=== PATIENT | male | born 1955 | race African-American/Black ===

== ENCOUNTER 2018-09-30 14:30 | Inpatient (IN) | payer MEDICAID, OTHER ==
[~2018-09-30] VITALS: Ht 172.7 cm; Wt 56.7 kg
[~2018-09-30 14:30] MED LIST: ALBU6.7H INH; FLUT1DIS INH; Folic Acid PO; LEVO500T2 PO; MOME13HF2 INH; MONT10TA21 PO; Metoprolol Tartrate PO; RISP05 PO; TAMS-11 PO; TDUR2 PO
[2018-09-30] MEDS ORDERED: METHYLPREDNISOLONE SOD SUCC 125 MG/2 ML VIAL IV STA (15:53)
[2018-09-30] MEDS ORDERED: MAGNESIUM 2 G PREMIX 50 ML IV ONE (16:00)
[2018-09-30] MEDS ORDERED: IPRATROPIUM/ALBUTEROL 0.5-3(2.5)MG/3ML NEB HHN ONE (16:00)
[2018-09-30] MEDS ORDERED: LEVOFLOXACIN 750MG PREMIX 150 ML IV ONE (16:00)
[2018-09-30 16:14] LABS: CHLORIDE 100 mEq/L (98-107)
[2018-09-30 16:15] LABS: BASOPHILS % 0.1 % (0.0-2.0); HEMATOCRIT. 50.6 % (42.0-52.0); HEMOGLOBIN. 16.4 g/dL (14.0-18.0); INR 1.2; LYMPHOCYTES % 18.2 % (20.0-50.0); MEAN CORPUSCULAR HEMOGLOBIN 30.4 pg (28.0-32.0); MEAN CORPUSCULAR VOLUME 93.6 fL (80.0-94.0); MEAN PLATELET VOLUME 11.3 fl (7.4-10.4); MONOCYTES % 6.5 % (2.0-8.0); NEUTROPHILS % 75.2 % (40.0-76.0); PARTIAL THROMBOPLASTIN TIME 31.8 sec (23.4-31.0); PLATELET 163 x1000/uL (130-400); PROTHROMBIN TIME 11.9 sec (9.1-11.1); RED BLOOD CELL COUNT 5.41 mill/uL (4.7-6.1); RED CELL DISTRIBUTION WIDTH 14.1 % (11.6-14.6)
[2018-09-30 16:19] LABS: ETHANOL BLOOD < 10 mg/dL
[2018-09-30 16:21] LABS: BG BASE EXCESS 1.6 mmol/L (-2.0-2.0); BG CARBOXYHEMOGLOBIN 1.3 % (0.5-1.5); BG DEOXYHEMOGLOBIN 1.2 % (0.0-5.0); BG HCO3 ACT 20.3 mmol/L (22.0-26.0); BG METHEMOGLOBIN 0.5 % (0.0-1.5); BG OXYGEN SATURATION 98.8 % (92.0-98.5); BG PCO2 20.5 mmHg (35.0-45.0); BG PH 7.613 (7.350-7.450); BG PO2 102.8 mmHg (75.0-100.0); BG SAMPLE SITE RIGHT RADIAL; BG TOTAL HEMOGLOBIN 16.3 g/dL (12.0-18.0); BG VENT MODE NASAL CANNULA
[2018-09-30] MEDS ORDERED: LORAZEPAM 2MG/ML CPJ IV ONE (16:30)
[2018-09-30] MEDS ORDERED: POTASSIUM CHLORIDE 20MEQ TABLET SR PO ONE (17:00)
[2018-09-30 19:16] LABS: CLARITY URINE CLOUDY (CLEAR); COLOR URINE YELLOW (YELLOW); KETONES URINE 2+ (NEGATIVE); LEUKOCYTE ESTERASE URINE 3+ (NEGATIVE); NITRITE URINE POSITIVE (NEGATIVE); OCCULT BLOOD URINE NEGATIVE (NEGATIVE); PH URINE 8.5 (4.5-8.0); PROTEIN URINE 2+ (NEGATIVE); SPECIFIC GRAVITY URINE 1.025 (1.005-1.030); UROBILINOGEN URINE 0.2 E.U./dL (0.2-1.0)
[2018-09-30 19:26] LABS: *BARBITURATES SCREEN URINE NEGATIVE (NEGATIVE)
[2018-09-30 19:27] LABS: *AMPHETAMINES SCREEN URINE NEGATIVE (NEGATIVE); *BENZODIAZEPINES SCREEN URINE NEGATIVE (NEGATIVE); *COCAINE SCREEN URINE NEGATIVE (NEGATIVE); METHADONE URINE SCREEN NEGATIVE (NEGATIVE); OPIATES URINE SCREEN NEGATIVE (NEGATIVE); PHENCYCLIDINE URINE SCREEN NEGATIVE (NEGATIVE)
[2018-09-30 19:28] LABS: CANNABINOID URINE SCREEN PRESUMTIVE POSITIVE (NEGATIVE)
[2018-09-30] MEDS ORDERED: MORPHINE SULFATE 4 MG/ML CPJ (NOT FOR IM USE) IV ONE (21:30)
[2018-09-30] MEDS ORDERED: ONDANSETRON HCL 4MG/2ML INJ IV ONE (21:30)
[2018-09-30 23:00] VITALS: BP 142/93
[2018-10-01] VITALS (12 sets, daily range): BP systolic 114–160; BP diastolic 65–106
[2018-10-01] MEDS ORDERED: ONDANSETRON HCL 4MG/2ML INJ IV PRN (00:15)
[2018-10-01] MEDS ORDERED: LEVOFLOXACIN 500MG PREMIX 100 ML IV SCH ×2 (00:15→16:00)
[2018-10-01] MEDS ORDERED: ACETAMINOPHEN 325MG TABLET PO PRN (00:15)
[2018-10-01] MEDS ORDERED: IPRATROPIUM/ALBUTEROL 0.5-3(2.5)MG/3ML NEB HHN PRN ×2 (00:30→14:15)
[2018-10-01] MEDS: IPRATROPIUM/ALBUTEROL 0.5-3(2.5)MG/3ML NEB HHN SCH ×5 (04:08→20:17)
[2018-10-01] MEDS: METHYLPREDNISOLONE SOD SUCC 40 MG/ML VIAL IV SCH ×3 (06:40→17:04)
[2018-10-01] MEDS: ALBUTEROL (0.083%) 2.5MG/3ML NEB HHN SCH ×3 (08:33→18:22)
[2018-10-01] MEDS: BUDESONIDE 0.5MG/2ML NEB HHN SCH ×2 (08:33→20:17)
[2018-10-01] MEDS: ENOXAPARIN 40MG/0.4ML SYR SUBCUT SCH (08:48)
[2018-10-01] MEDS: FOLIC ACID 1MG TABLET PO SCH (08:49)
[2018-10-01] MEDS: TAMSULOSIN HCL 0.4MG SR CAPSULE PO SCH (08:49)
[2018-10-01] MEDS: AMLODIPINE 10MG TABLET PO SCH (08:50)
[2018-10-01] MEDS ORDERED: ADVAIR SCH (09:00)
[2018-10-01] MEDS ORDERED: INFLUENZA VIRUS VACCINE(AFLURIA) 0.5ML SYR IM ONE (10:00)
[2018-10-01 12:23] LABS: CHLORIDE 105 mEq/L (98-107)
[2018-10-01 12:26] LABS: HEMATOCRIT. 48.5 % (42.0-52.0); HEMOGLOBIN. 15.5 g/dL (14.0-18.0); MEAN CORPUSCULAR HEMOGLOBIN 30.1 pg (28.0-32.0); MEAN CORPUSCULAR VOLUME 94.2 fL (80.0-94.0); MEAN PLATELET VOLUME 10.9 fl (7.4-10.4); PLATELET 158 x1000/uL (130-400); RED BLOOD CELL COUNT 5.15 mill/uL (4.7-6.1); RED CELL DISTRIBUTION WIDTH 14.1 % (11.6-14.6)
[2018-10-01 15:23] LABS: BG BASE EXCESS -0.7 mmol/L (-2.0-2.0); BG BILEVEL POS AIRWAY PRESSURE 15/5; BG CARBOXYHEMOGLOBIN 0.9 % (0.5-1.5); BG DEOXYHEMOGLOBIN 0.9 % (0.0-5.0); BG FRACTION INSPIRED OXYGEN 40; BG HCO3 ACT 24.1 mmol/L (22.0-26.0); BG METHEMOGLOBIN 0.5 % (0.0-1.5); BG OXYGEN SATURATION 99.1 % (92.0-98.5); BG OXYHEMOGLOBIN 97.7 % (94.0-97.0); BG PCO2 40.1 mmHg (35.0-45.0); BG PH 7.396 (7.350-7.450); BG PO2 166.2 mmHg (75.0-100.0); BG SAMPLE SITE RIGHT RADIAL; BG VENT MODE MASK - BIPAP; BG VENT RATE 18 set
[2018-10-01 16:17] LABS: PLATELET ESTIMATE NORMAL
[2018-10-01] MEDS: MONTELUKAST SODIUM 10MG TABLET PO SCH (16:22)
[2018-10-01 16:58] LABS: HEPATITIS B SURFACE ANTIGEN NEGATIVE
[2018-10-01] MEDS ORDERED: MONTELUKAST SODIUM 10MG TABLET PO SCH (17:00)
[2018-10-01 17:28] LABS: HEPATITIS A AB IGM NEGATIVE (NEGATIVE)
[2018-10-01] MEDS: GUAIFENESIN 600MG ER TABLET PO SCH (21:23)
[2018-10-01] MEDS: FAMOTIDINE 20MG/2ML VIAL IV SCH (21:23)
[2018-10-02] VITALS (11 sets, daily range): BP systolic 106–134; BP diastolic 61–88
[2018-10-02] MEDS: IPRATROPIUM/ALBUTEROL 0.5-3(2.5)MG/3ML NEB HHN SCH ×4 (04:18→20:12)
[2018-10-02] MEDS: BUDESONIDE 0.5MG/2ML NEB HHN SCH (08:19)
[2018-10-02] MEDS ORDERED: PREDNISONE 20MG TABLET PO SCH (09:00)
[2018-10-02] MEDS: ENOXAPARIN 40MG/0.4ML SYR SUBCUT SCH (09:01)
[2018-10-02] MEDS: GUAIFENESIN 600MG ER TABLET PO SCH ×2 (09:01→22:04)
[2018-10-02] MEDS: AMLODIPINE 10MG TABLET PO SCH (09:01)
[2018-10-02] MEDS: FAMOTIDINE 20MG/2ML VIAL IV SCH ×2 (09:02→22:04)
[2018-10-02] MEDS: TAMSULOSIN HCL 0.4MG SR CAPSULE PO SCH (09:02)
[2018-10-02] MEDS: FOLIC ACID 1MG TABLET PO SCH (09:02)
[2018-10-02] MEDS: ALBUTEROL (0.083%) 2.5MG/3ML NEB HHN SCH (12:35)
[2018-10-02] MEDS ORDERED: AZITHROMYCIN 500 MG in DEXT 5% WATER 250 ML IV SCH (15:30)
[2018-10-02] MEDS: CEFTRIAXONE 1 G PREMIX 50 ML IV SCH (15:36)
[2018-10-02] MEDS: METHYLPREDNISOLONE SOD SUCC 40 MG/ML VIAL IV SCH ×2 (15:38→22:04)
[2018-10-02] MEDS: ACETYLCYSTEINE 100MG/ML 10% VIAL 4ML INH SCH (16:28)
[2018-10-02] MEDS: MONTELUKAST SODIUM 10MG TABLET PO SCH (16:52)
[2018-10-03] VITALS: BP 124/76
[2018-10-03] MEDS: IPRATROPIUM/ALBUTEROL 0.5-3(2.5)MG/3ML NEB HHN SCH ×6 (00:10→21:10)
[2018-10-03] MEDS: ACETYLCYSTEINE 100MG/ML 10% VIAL 4ML INH SCH ×3 (00:10→14:23)
[2018-10-03 02:00] VITALS: BP 118/76
[2018-10-03 04:00] VITALS: BP 122/72
[2018-10-03] MEDS: FAMOTIDINE 20MG/2ML VIAL IV SCH ×2 (10:27→21:19)
[2018-10-03] MEDS: TAMSULOSIN HCL 0.4MG SR CAPSULE PO SCH (10:28)
[2018-10-03] MEDS: FOLIC ACID 1MG TABLET PO SCH (10:29)
[2018-10-03] MEDS: AMLODIPINE 10MG TABLET PO SCH (10:29)
[2018-10-03] MEDS: GUAIFENESIN 600MG ER TABLET PO SCH ×2 (10:29→21:19)
[2018-10-03] MEDS: ENOXAPARIN 40MG/0.4ML SYR SUBCUT SCH (10:30)
[2018-10-03 12:00] VITALS: BP 118/78
[2018-10-03 13:11] LABS: HIV SCREEN 4G Non Reactive (Non Reactive)
[2018-10-03] MEDS: METHYLPREDNISOLONE SOD SUCC 40 MG/ML VIAL IV SCH ×3 (14:00→21:19)
[2018-10-03 17:17] LABS: BG BASE EXCESS 8.4 mmol/L (-2.0-2.0); BG CARBOXYHEMOGLOBIN 0.8 % (0.5-1.5); BG DEOXYHEMOGLOBIN 6.2 % (0.0-5.0); BG FRACTION INSPIRED OXYGEN 21; BG HCO3 ACT 33.3 mmol/L (22.0-26.0); BG METHEMOGLOBIN 0.3 % (0.0-1.5); BG OXYGEN SATURATION 93.7 % (92.0-98.5); BG OXYHEMOGLOBIN 92.7 % (94.0-97.0); BG PH 7.477 (7.350-7.450); BG PO2 65.9 mmHg (75.0-100.0); BG SAMPLE SITE RIGHT RADIAL; BG TOTAL HEMOGLOBIN 15.1 g/dL (12.0-18.0); BG VENT MODE ROOM AIR
[2018-10-03] MEDS: MONTELUKAST SODIUM 10MG TABLET PO SCH (17:59)
[2018-10-03] MEDS: CEFTRIAXONE 1 G PREMIX 50 ML IV SCH (18:24)
[2018-10-03 19:32] VITALS: BP 121/78
[2018-10-03 20:00] VITALS: BP 125/85
[2018-10-03] MEDS ORDERED: AZITHROMYCIN 500 MG in DEXT 5% WATER 250 ML IV SCH (20:00)
[2018-10-04] VITALS: BP 125/77
[2018-10-04] MEDS: IPRATROPIUM/ALBUTEROL 0.5-3(2.5)MG/3ML NEB HHN SCH ×5 (01:06→15:48)
[2018-10-04 04:00] VITALS: BP 130/70
[2018-10-04] MEDS: METHYLPREDNISOLONE SOD SUCC 40 MG/ML VIAL IV SCH ×2 (06:13→14:00)
[2018-10-04 08:00] VITALS: BP 125/82
[2018-10-04] MEDS: ACETYLCYSTEINE 100MG/ML 10% VIAL 4ML INH SCH (09:33)
[2018-10-04] MEDS: FOLIC ACID 1MG TABLET PO SCH (09:38)
[2018-10-04] MEDS: ENOXAPARIN 40MG/0.4ML SYR SUBCUT SCH (09:38)
[2018-10-04] MEDS: GUAIFENESIN 600MG ER TABLET PO SCH (09:38)
[2018-10-04] MEDS: FAMOTIDINE 20MG/2ML VIAL IV SCH (09:38)
[2018-10-04] MEDS: AMLODIPINE 10MG TABLET PO SCH (09:38)
[2018-10-04] MEDS: TAMSULOSIN HCL 0.4MG SR CAPSULE PO SCH (09:46)
[2018-10-04 11:44] VITALS: BP 131/87
[2018-10-04] MEDS: CEFTRIAXONE 1 G PREMIX 50 ML IV SCH (15:00)
== END 2018-10-04 16:48 | disposition home or self-care (01) | DRG 720 ==
LOC: ER 14:30 → 5EST 17:02 → ENRESERV 21:57 → 6WST 10-03 06:20
PROVIDERS: ADMIT Internal Medicine; ATTEND Internal Medicine
PROC: 5A09357 Assistance with Respiratory Ventilation, Less than 24 Consecutive Hours, Continuous Positive Airway Pressure (ICD-10-PCS; principal; 2018-09-30)
PROC: 5A09357 Assistance with Respiratory Ventilation, Less than 24 Consecutive Hours, Continuous Positive Airway Pressure (ICD-10-PCS; 2018-10-01)
PROC: 5A09357 Assistance with Respiratory Ventilation, Less than 24 Consecutive Hours, Continuous Positive Airway Pressure (ICD-10-PCS; 2018-10-03)
DX: A41.9 Sepsis, unspecified organism (principal); J96.20 Acute and chronic respiratory failure, unspecified whether with hypoxia or hypercapnia; J44.1 Chronic obstructive pulmonary disease with (acute) exacerbation; J45.901 Unspecified asthma with (acute) exacerbation; I48.91 Unspecified atrial fibrillation; I11.0 Hypertensive heart disease with heart failure; I50.32 Chronic diastolic (congestive) heart failure; N39.0 Urinary tract infection, site not specified; E87.6 Hypokalemia; F12.90 Cannabis use, unspecified, uncomplicated; N40.0 Benign prostatic hyperplasia without lower urinary tract symptoms; I69.354 Hemiplegia and hemiparesis following cerebral infarction affecting left non-dominant side; Z87.891 Personal history of nicotine dependence; Z90.2 Acquired absence of lung [part of]; Z90.79 Acquired absence of other genital organ(s); Z99.81 Dependence on supplemental oxygen; Z79.899 Other long term (current) drug therapy
CPT/HCPCS: 36415; 36600; 71045; 80048; 80305; 82375; 82805; 83036; 83605; 83880; 84484; 86705; 86709; 86803; 87070; 87340; 87389; 87430; 87804; 90686; 93005; 93970; 94640; 94660; 96365; 96368; 96375; 97116; 97162; 97530; 99291; G0482; J0456; J0696; J1650; J1956; J2060; J2270; J2405; J2920; J2930; J3475; J3490; J7050; J7060; J7512; J7608; J7611; J7620; J7626

== ENCOUNTER 2019-09-03 17:38 | Inpatient (IN) | payer MEDICAID ==
[~2019-09-03] VITALS: Ht 180.3 cm; Wt 54.4 kg
[~2019-09-03 17:38] MED LIST changes: -ALBU6.7H INH; +ALBU6.7H11 INH; -LEVO500T2 PO
[2019-09-03] MEDS ORDERED: METHYLPREDNISOLONE SOD SUCC 125 MG/2 ML VIAL IV STA (18:48)
[2019-09-03] MEDS ORDERED: IPRATROPIUM BROMIDE (0.02%) 0.5MG/2.5ML NEB HHN STA (18:48)
[2019-09-03] MEDS ORDERED: ALBUTEROL (0.083%) 2.5MG/3ML NEB HHN STA (18:48)
[2019-09-03] MEDS ORDERED: MAGNESIUM 2 G PREMIX 50 ML IV ONE (19:00)
[2019-09-03 19:31] LABS: BASOPHILS % 0.8 % (0.0-2.0); EOSINOPHILS % 7.6 % (0.0-5.0); HEMATOCRIT. 44.8 % (42.0-52.0); HEMOGLOBIN. 14.4 g/dL (14.0-18.0); LYMPHOCYTES % 27.3 % (20.0-50.0); MEAN CORPUSCULAR HEMOGLOBIN 30.1 pg (28.0-32.0); MEAN CORPUSCULAR VOLUME 93.4 fL (80.0-94.0); MEAN PLATELET VOLUME 11.5 fl (7.4-10.4); MONOCYTES % 9.9 % (2.0-8.0); NEUTROPHILS % 54.4 % (40.0-76.0); PLATELET 144 x1000/uL (130-400); RED BLOOD CELL COUNT 4.79 mill/uL (4.7-6.1); RED CELL DISTRIBUTION WIDTH 13.1 % (11.6-14.6)
[2019-09-03 19:37] LABS: CHLORIDE 108 mEq/L (98-107)
[2019-09-04 02:00] VITALS: BP 154/97
[2019-09-04] MEDS ORDERED: CLONIDINE 0.1MG TABLET PO PRN (02:00)
[2019-09-04] MEDS ORDERED: IPRATROPIUM/ALBUTEROL 0.5-3(2.5)MG/3ML NEB NEB PRN (02:00)
[2019-09-04] MEDS ORDERED: KETOROLAC 15MG/ML VIAL IV PRN (02:00)
[2019-09-04] MEDS ORDERED: ONDANSETRON HCL 4MG/2ML INJ IV PRN (02:00)
[2019-09-04] MEDS ORDERED: GUAIFENESIN 200MG/10ML SUGAR FREE UDC PO PRN (02:00)
[2019-09-04] MEDS ORDERED: LORAZEPAM 0.5MG TABLET PO PRN (02:00)
[2019-09-04] MEDS ORDERED: DOCUSATE SODIUM 100MG CAPSULE PO PRN (02:00)
[2019-09-04] MEDS ORDERED: MAGNESIUM/ALUMINUM HYDROXIDE/SIMETHICONE 30ML UDC PO PRN (02:00)
[2019-09-04] MEDS ORDERED: NA PHOS,M-B/NA PHOS,DI-BA ENEMA 118ML PR PRN (02:00)
[2019-09-04] MEDS ORDERED: NITROGLYCERIN 0.4MG TABLET SL SL PRN (02:00)
[2019-09-04] MEDS ORDERED: THEO80SO7 PO (03:23)
[2019-09-04] MEDS ORDERED: OMEP20TA2 PO (03:23)
[2019-09-04] MEDS ORDERED: MULT1TAB63 PO (03:23)
[2019-09-04] MEDS ORDERED: TRAZ-251 PO (03:23)
[2019-09-04] MEDS ORDERED: LOSA25TA26 PO (03:23)
[2019-09-04] MEDS ORDERED: SIMV10TA97 PO (03:23)
[2019-09-04] MEDS ORDERED: TAMS-11 PO (03:23)
[2019-09-04 04:00] VITALS: BP 108/61
[2019-09-04] MEDS ORDERED: LEVOFLOXACIN 500MG PREMIX 100 ML IV SCH (04:00)
[2019-09-04] MEDS: IPRATROPIUM/ALBUTEROL 0.5-3(2.5)MG/3ML NEB HHN SCH ×3 (04:22→12:00)
[2019-09-04] MEDS ORDERED: METHYLPREDNISOLONE SOD SUCC 125 MG/2 ML VIAL IV SCH (06:00)
[2019-09-04] MEDS: DILTIAZEM HCL 60MG TABLET PO SCH ×2 (06:00→12:29)
[2019-09-04 07:32] LABS: CREATINE KINASE 85 IU/L (39-308)
[2019-09-04 07:34] LABS: CREATINE KINASE MB FRACTION 1.2 ng/mL (0.5-3.6)
[2019-09-04 08:00] VITALS: BP 140/81
[2019-09-04] MEDS ORDERED: LISINOPRIL 20MG TABLET PO SCH (09:00)
[2019-09-04] MEDS ORDERED: FAMOTIDINE 20MG TABLET PO SCH (09:00)
[2019-09-04] MEDS ORDERED: ENOXAPARIN 40MG/0.4ML SYR SUBCUT SCH (09:00)
[2019-09-04] MEDS ORDERED: GUAIFENESIN/DM 600MG/30MG ER TAB 12HR PO SCH (09:00)
[2019-09-04] MEDS: ACETAMINOPHEN 325MG TABLET PO PRN ×2 (10:10→12:22)
[2019-09-04 12:00] VITALS: BP 140/83
[2019-09-04 12:54] VITALS: BP 140/83
[2019-09-04 14:00] VITALS: BP 140/83
[2019-09-04 15:35] LABS: *AMPHETAMINES SCREEN URINE NEGATIVE (NEGATIVE); *BARBITURATES SCREEN URINE NEGATIVE (NEGATIVE); *BENZODIAZEPINES SCREEN URINE NEGATIVE (NEGATIVE); *COCAINE SCREEN URINE NEGATIVE (NEGATIVE)
[2019-09-04 15:36] LABS: METHADONE URINE SCREEN NEGATIVE (NEGATIVE)
[2019-09-04 15:38] LABS: OPIATES URINE SCREEN NEGATIVE (NEGATIVE)
[2019-09-04 15:40] LABS: CANNABINOID URINE SCREEN PRESUMTIVE POSITIVE (NEGATIVE); PHENCYCLIDINE URINE SCREEN NEGATIVE (NEGATIVE)
== END 2019-09-04 13:57 | disposition home or self-care (01) | DRG 140 ==
LOC: ER 17:38 → 7WST 20:35 → ENRESERV 23:51
PROVIDERS: ADMIT Internal Medicine; ATTEND Internal Medicine
DX: J44.1 Chronic obstructive pulmonary disease with (acute) exacerbation (principal); J96.00 Acute respiratory failure, unspecified whether with hypoxia or hypercapnia; I10 Essential (primary) hypertension; E44.1 Mild protein-calorie malnutrition; N40.0 Benign prostatic hyperplasia without lower urinary tract symptoms; F14.90 Cocaine use, unspecified, uncomplicated; Z71.51 Drug abuse counseling and surveillance of drug abuser; Z86.73 Personal history of transient ischemic attack (TIA), and cerebral infarction without residual deficits; Z68.1 Body mass index [BMI] 19.9 or less, adult; Z79.899 Other long term (current) drug therapy
CPT/HCPCS: 36415; 71045; 80053; 80061; 80305; 82550; 82553; 83036; 84484; 85025; 93005; 93970; 94640; 96365; 96375; 96376; 99285; J1650; J1956; J2930; J3475

== ENCOUNTER 2019-09-23 23:37 | Inpatient (IN) | payer MEDICAID ==
[~2019-09-23] VITALS: Ht 180.3 cm; Wt 52.2 kg
[~2019-09-23 23:37] MED LIST changes: +LOSA25TA26 PO; -MOME13HF2 INH; +MULT1TAB63 PO; +OMEP20TA2 PO; +SIMV10TA97 PO; +TRAZ-251 PO
[2019-09-24] MEDS ORDERED: IPRATROPIUM BROMIDE (0.02%) 0.5MG/2.5ML NEB HHN STA (00:20)
[2019-09-24] MEDS ORDERED: METHYLPREDNISOLONE SOD SUCC 125 MG/2 ML VIAL IV STA (00:20)
[2019-09-24] MEDS ORDERED: ALBUTEROL (0.083%) 2.5MG/3ML NEB HHN STA (00:20)
[2019-09-24 00:35] LABS: BASOPHILS % 0.1 % (0.0-2.0); EOSINOPHILS % 2.2 % (0.0-5.0); HEMATOCRIT. 49.3 % (42.0-52.0); HEMOGLOBIN. 15.9 g/dL (14.0-18.0); LYMPHOCYTES % 18.3 % (20.0-50.0); MEAN CORPUSCULAR HEMOGLOBIN 29.9 pg (28.0-32.0); MEAN CORPUSCULAR VOLUME 92.9 fL (80.0-94.0); MEAN PLATELET VOLUME 11.1 fl (7.4-10.4); MONOCYTES % 3.5 % (2.0-8.0); NEUTROPHILS % 75.9 % (40.0-76.0); PLATELET 138 x1000/uL (130-400); RED BLOOD CELL COUNT 5.31 mill/uL (4.7-6.1); RED CELL DISTRIBUTION WIDTH 12.8 % (11.6-14.6)
[2019-09-24 00:42] LABS: CHLORIDE 101 mEq/L (98-107)
[2019-09-24 02:08] LABS: BG BASE EXCESS 4.8 mmol/L (-2.0-2.0); BG CARBOXYHEMOGLOBIN 0.4 % (0.5-1.5); BG DEOXYHEMOGLOBIN 1.4 % (0.0-5.0); BG FRACTION INSPIRED OXYGEN 28; BG HCO3 ACT 31.1 mmol/L (22.0-26.0); BG METHEMOGLOBIN 0.4 % (0.0-1.5); BG OXYGEN SATURATION 98.6 % (92.0-98.5); BG OXYHEMOGLOBIN 97.8 % (94.0-97.0); BG PCO2 52.8 mmHg (35.0-45.0); BG PH 7.388 (7.350-7.450); BG PO2 133.5 mmHg (75.0-100.0); BG SAMPLE SITE RIGHT RADIAL; BG TOTAL HEMOGLOBIN 14.3 g/dL (12.0-18.0); BG VENT MODE NASAL CANNULA
[2019-09-24] MEDS ORDERED: LORAZEPAM 2MG/ML CPJ IV PRN (06:30)
[2019-09-24] MEDS ORDERED: CLONIDINE 0.1MG TABLET PO PRN (06:30)
[2019-09-24] MEDS ORDERED: NA PHOS,M-B/NA PHOS,DI-BA ENEMA 118ML PR PRN (06:30)
[2019-09-24] MEDS ORDERED: IPRATROPIUM/ALBUTEROL 0.5-3(2.5)MG/3ML NEB NEB PRN (06:30)
[2019-09-24] MEDS ORDERED: ACETAMINOPHEN 325MG TABLET PO PRN (06:30)
[2019-09-24] MEDS ORDERED: ONDANSETRON HCL 4MG/2ML INJ IV PRN (06:30)
[2019-09-24] MEDS ORDERED: MORPHINE SULFATE 2 MG/ML CPJ (NOT FOR IM USE) IV PRN (06:30)
[2019-09-24] MEDS ORDERED: GUAIFENESIN 200MG/10ML SUGAR FREE UDC PO PRN (06:30)
[2019-09-24] MEDS ORDERED: DIPHENHYDRAMINE 50MG/ML VIAL IV PRN (06:30)
[2019-09-24 07:27] LABS: CHLORIDE 103 mEq/L (98-107)
[2019-09-24 07:55] VITALS: BP 114/71
[2019-09-24 08:00] VITALS: BP 114/71
[2019-09-24] MEDS ORDERED: METHYLPREDNISOLONE SOD SUCC 125 MG/2 ML VIAL IV SCH (08:30)
[2019-09-24] MEDS: ASPIRIN 81MG EC TABLET PO SCH (08:35)
[2019-09-24] MEDS: ENOXAPARIN 40MG/0.4ML SYR SUBCUT SCH (08:36)
[2019-09-24] MEDS: LEVOFLOXACIN 500MG PREMIX 100 ML IV SCH (10:49)
[2019-09-24 12:00] VITALS: BP 113/81
[2019-09-24] MEDS ORDERED: FOLI-43 MT (13:52)
[2019-09-24] MEDS ORDERED: GUAIFENESIN/DM 600MG/30MG ER TAB 12HR PO PRN (15:00)
[2019-09-24 16:00] VITALS: BP 122/70
[2019-09-24] MEDS: MONTELUKAST SODIUM 10MG TABLET PO SCH (18:11)
[2019-09-24] MEDS: PREDNISONE 20MG TABLET PO SCH (18:11)
[2019-09-24 20:00] VITALS: BP 102/61
[2019-09-24] MEDS: FLUTICASONE PROPIONATE 50MCG/SPRAY BOTTLE BOTHNSTRLS SCH (21:55)
[2019-09-24] MEDS: FAMOTIDINE 20MG TABLET PO SCH (21:55)
[2019-09-24] MEDS: HYDROCODONE/ACETAMINOPHEN 5/325MG TABLET PO PRN (21:57)
[2019-09-24] MEDS: MAGNESIUM/ALUMINUM HYDROXIDE/SIMETHICONE 30ML UDC PO PRN (21:58)
[2019-09-25] VITALS: BP 117/71
[2019-09-25 04:00] VITALS: BP 113/67
[2019-09-25] MEDS: HYDROCODONE/ACETAMINOPHEN 5/325MG TABLET PO PRN ×3 (05:56→21:49)
[2019-09-25 06:50] LABS: CHLORIDE 102 mEq/L (98-107); HEMATOCRIT. 43.5 % (42.0-52.0); MEAN CORPUSCULAR HEMOGLOBIN 29.5 pg (28.0-32.0); MEAN CORPUSCULAR VOLUME 91.3 fL (80.0-94.0); MEAN PLATELET VOLUME 11.1 fl (7.4-10.4); PLATELET 146 x1000/uL (130-400); RED BLOOD CELL COUNT 4.76 mill/uL (4.7-6.1); RED CELL DISTRIBUTION WIDTH 12.8 % (11.6-14.6)
[2019-09-25 07:11] LABS: LDL CHOLESTEROL 106 mg/dL (5-100)
[2019-09-25 07:13] LABS: HDL CHOLESTEROL 70 mg/dL (40-59)
[2019-09-25 08:00] VITALS: BP 118/72
[2019-09-25] MEDS: FLUTICASONE PROPIONATE 50MCG/SPRAY BOTTLE BOTHNSTRLS SCH ×2 (09:00→21:50)
[2019-09-25] MEDS: ASPIRIN 81MG EC TABLET PO SCH (09:07)
[2019-09-25] MEDS: PREDNISONE 20MG TABLET PO SCH ×2 (09:07→16:30)
[2019-09-25] MEDS: DOCUSATE SODIUM 100MG CAPSULE PO PRN (09:07)
[2019-09-25] MEDS: FAMOTIDINE 20MG TABLET PO SCH ×2 (09:07→21:48)
[2019-09-25] MEDS: ENOXAPARIN 40MG/0.4ML SYR SUBCUT SCH (09:08)
[2019-09-25] MEDS: LEVOFLOXACIN 500MG PREMIX 100 ML IV SCH (09:11)
[2019-09-25 12:00] VITALS: BP 107/64
[2019-09-25 13:10] LABS: PLATELET ESTIMATE NORMAL
[2019-09-25 16:00] VITALS: BP 124/75
[2019-09-25] MEDS: MONTELUKAST SODIUM 10MG TABLET PO SCH (16:29)
[2019-09-25] MEDS: MAGNESIUM/ALUMINUM HYDROXIDE/SIMETHICONE 30ML UDC PO PRN (16:30)
[2019-09-25] MEDS: IPRATROPIUM/ALBUTEROL 0.5-3(2.5)MG/3ML NEB HHN SCH ×2 (17:46→21:22)
[2019-09-25 20:00] VITALS: BP 112/63
[2019-09-26] VITALS: BP 127/68
[2019-09-26] MEDS: IPRATROPIUM/ALBUTEROL 0.5-3(2.5)MG/3ML NEB HHN SCH ×3 (01:07→08:55)
[2019-09-26 04:00] VITALS: BP 117/70
[2019-09-26 08:00] VITALS: BP 122/72
[2019-09-26] MEDS: FLUTICASONE PROPIONATE 50MCG/SPRAY BOTTLE BOTHNSTRLS SCH (09:16)
[2019-09-26] MEDS: FAMOTIDINE 20MG TABLET PO SCH (09:16)
[2019-09-26] MEDS: DOCUSATE SODIUM 100MG CAPSULE PO PRN (09:16)
[2019-09-26] MEDS: PREDNISONE 20MG TABLET PO SCH (09:16)
[2019-09-26] MEDS: ASPIRIN 81MG EC TABLET PO SCH (09:16)
[2019-09-26] MEDS: ENOXAPARIN 40MG/0.4ML SYR SUBCUT SCH (09:17)
[2019-09-26 12:09] VITALS: BP 135/79
== END 2019-09-26 12:25 | disposition home or self-care (01) | DRG 139 ==
LOC: ER 23:37 → 6WST 09-24 03:59 → ENRESERV 09-24 07:15
PROVIDERS: ADMIT Internal Medicine; ATTEND Internal Medicine
DX: J18.9 Pneumonia, unspecified organism (principal); J96.00 Acute respiratory failure, unspecified whether with hypoxia or hypercapnia; I11.0 Hypertensive heart disease with heart failure; I48.91 Unspecified atrial fibrillation; I50.9 Heart failure, unspecified; J44.1 Chronic obstructive pulmonary disease with (acute) exacerbation; I69.354 Hemiplegia and hemiparesis following cerebral infarction affecting left non-dominant side; J00 Acute nasopharyngitis [common cold]; N40.0 Benign prostatic hyperplasia without lower urinary tract symptoms; Z79.899 Other long term (current) drug therapy; Z79.51 Long term (current) use of inhaled steroids; Z90.2 Acquired absence of lung [part of]; Z90.79 Acquired absence of other genital organ(s)
CPT/HCPCS: 36415; 36600; 71045; 80048; 80053; 80061; 82375; 82805; 82962; 83880; 84439; 84443; 84484; 85025; 93005; 94640; 99285; J1200; J1650; J1956; J2060; J2930; J7512

== ENCOUNTER 2019-12-21 17:40 | Emergency (ER) | payer MEDICAID ==
[~2019-12-21] VITALS: Ht 180.3 cm; Wt 59.0 kg
[~2019-12-21 17:40] MED LIST changes: +FOLI-43 MT; -Folic Acid PO; -Metoprolol Tartrate PO
[2019-12-21] MEDS ORDERED: ACETAMINOPHEN 325MG TABLET PO STA (17:52)
[2019-12-21 20:19] LABS: CLARITY URINE CLEAR (CLEAR); COLOR URINE YELLOW (YELLOW); KETONES URINE NEGATIVE (NEGATIVE); LEUKOCYTE ESTERASE URINE 1+ (NEGATIVE); NITRITE URINE NEGATIVE (NEGATIVE); OCCULT BLOOD URINE NEGATIVE (NEGATIVE); PROTEIN URINE NEGATIVE (NEGATIVE); SPECIFIC GRAVITY URINE 1.016 (1.005-1.030); UROBILINOGEN URINE 0.2 E.U./dL (0.2-1.0)
[2019-12-21 20:20] LABS: BASOPHILS % 0.8 % (0.0-2.0); EOSINOPHILS % 10.6 % (0.0-5.0); HEMATOCRIT. 51.7 % (42.0-52.0); HEMOGLOBIN. 16.9 g/dL (14.0-18.0); LYMPHOCYTES % 32.5 % (20.0-50.0); MEAN CORPUSCULAR HEMOGLOBIN 31.2 pg (28.0-32.0); MEAN CORPUSCULAR VOLUME 95.5 fL (80.0-94.0); MEAN PLATELET VOLUME 10.5 fl (7.4-10.4); MONOCYTES % 11.6 % (2.0-8.0); NEUTROPHILS % 44.5 % (40.0-76.0); PLATELET 227 x1000/uL (130-400); RED BLOOD CELL COUNT 5.42 mill/uL (4.7-6.1); RED CELL DISTRIBUTION WIDTH 15.7 % (11.6-14.6)
[2019-12-21 20:22] LABS: CHLORIDE 103 mEq/L (98-107); INR 1.2; PROTHROMBIN TIME 13.1 sec (9.6-11.0)
[2019-12-21] MEDS ORDERED: METHYLPREDNISOLONE SOD SUCC 125 MG/2 ML VIAL IV ONE (21:15)
[2019-12-21] MEDS ORDERED: ALBUTEROL 6.7GM HFA INHALER ORI PRN (21:15)
[2019-12-21] MEDS ORDERED: CEFTRIAXONE 1 G PREMIX 50 ML IV ONE (22:30)
[2019-12-22 00:35] VITALS: BP 125/72
== END 2019-12-22 00:37 | disposition home or self-care (01) ==
LOC: ER 17:40
DX: J44.1 Chronic obstructive pulmonary disease with (acute) exacerbation (principal); J44.9 Chronic obstructive pulmonary disease, unspecified; I10 Essential (primary) hypertension; Z79.899 Other long term (current) drug therapy
CPT/HCPCS: 36415; 71045; 80053; 81003; 83605; 83690; 83880; 84145; 84484; 85025; 85610; 87040; 87086; 87804; 93005; 96365; 96375; 99285; J0696; J2930

== ENCOUNTER 2022-08-27 13:30 | Inpatient (IN) | payer MEDICAID ==
[~2022-08-27] VITALS: Ht 182.9 cm; Wt 67.6 kg
[~2022-08-27 13:30] MED LIST changes: -ALBU6.7H11 INH; +ALBU6.7H15 INH; +MULT-624 PO; -MULT1TAB63 PO; -OMEP20TA2 PO; +OMEP20TA23 PO
[2022-08-27 15:35] LABS: HEMATOCRIT. 45.8 % (42.0-52.0); HEMOGLOBIN. 15.2 g/dL (14.0-18.0); MEAN CORPUSCULAR HEMOGLOBIN 32.4 pg (28.0-32.0); MEAN CORPUSCULAR VOLUME 97.5 fL (80.0-94.0); MEAN PLATELET VOLUME 10.2 fl (7.4-10.4); PLATELET 166 x1000/uL (130-400); RED CELL DISTRIBUTION WIDTH 14.8 % (11.6-14.6)
[2022-08-27 15:47] LABS: CHLORIDE 98 mEq/L (98-107)
[2022-08-27 16:26] LABS: CLARITY URINE TURBID (CLEAR); COLOR URINE YELLOW (YELLOW); KETONES URINE NEGATIVE (NEGATIVE); LEUKOCYTE ESTERASE URINE 3+ (NEGATIVE); NITRITE URINE POSITIVE (NEGATIVE); OCCULT BLOOD URINE 2+ (NEGATIVE); PH URINE 8.5 (4.5-8.0); PROTEIN URINE 2+ (NEGATIVE); SPECIFIC GRAVITY URINE 1.014 (1.005-1.030); UROBILINOGEN URINE 0.2 E.U./dL (0.2-1.0)
[2022-08-27] MEDS ORDERED: AMOX-494 MT (16:40)
[2022-08-27] MEDS ORDERED: P20 MT (16:41)
[2022-08-27] MEDS ORDERED: NITR-87 MT (16:41)
[2022-08-27] MEDS ORDERED: AMOXICILLIN 500 MG CAPSULE PO ONE (16:45)
[2022-08-27] MEDS ORDERED: NITROFURANTOIN 100MG M/M CAPSULE PO ONE (16:45)
[2022-08-27] MEDS ORDERED: ACETAMINOPHEN 325MG TABLET PO STA (17:26)
[2022-08-27] MEDS ORDERED: SODIUM CHLORIDE 0.9% 1,000 ML IV ONE (17:30)
[2022-08-27] MEDS ORDERED: CEFTRIAXONE 1 G PREMIX 50 ML IV NR (17:30)
[2022-08-27 18:21] LABS: PLATELET ESTIMATE NORMAL
[2022-08-27] MEDS ORDERED: LORAZEPAM 2MG/ML CPJ IV PRN (22:00)
[2022-08-27] MEDS ORDERED: DOCUSATE SODIUM 100MG CAPSULE PO PRN (22:00)
[2022-08-27] MEDS ORDERED: ONDANSETRON HCL 4MG/2ML INJ IV PRN (22:00)
[2022-08-27] MEDS ORDERED: GUAIFENESIN 200MG/10ML SUGAR FREE UDC PO PRN (22:00)
[2022-08-27] MEDS ORDERED: NA PHOS,M-B/NA PHOS,DI-BA ENEMA 118ML PR PRN (22:00)
[2022-08-27] MEDS ORDERED: MAGNESIUM/ALUMINUM HYDROXIDE/SIMETHICONE 30ML UDC PO PRN (22:00)
[2022-08-27] MEDS ORDERED: CLONIDINE 0.1MG TABLET PO PRN (22:00)
[2022-08-27] MEDS ORDERED: ACETAMINOPHEN 325MG TABLET PO PRN (22:00)
[2022-08-27] MEDS: SODIUM CHLORIDE 0.45% 1,000 ML IV SCH (22:32)
[2022-08-27] MEDS: HYDROCODONE/ACETAMINOPHEN 5/325MG TABLET PO PRN (22:57)
[2022-08-27] MEDS ORDERED: LEVOFLOXACIN 500MG PREMIX 100 ML IV SCH (23:00)
[2022-08-28] VITALS (7 sets, daily range): BP systolic 109–190; BP diastolic 70–103
[2022-08-28] MEDS: HYDROCODONE/ACETAMINOPHEN 5/325MG TABLET PO PRN ×2 (03:43→22:28)
[2022-08-28] MEDS: IPRATROPIUM/ALBUTEROL 0.5-3(2.5)MG/3ML NEB NEB PRN (04:25)
[2022-08-28 08:07] LABS: CHLORIDE 103 mEq/L (98-107)
[2022-08-28 10:03] LABS: HEMATOCRIT. 41.1 % (42.0-52.0); HEMOGLOBIN. 13.4 g/dL (14.0-18.0); MEAN CORPUSCULAR HEMOGLOBIN 32.1 pg (28.0-32.0); MEAN PLATELET VOLUME 10.2 fl (7.4-10.4); PLATELET 148 x1000/uL (130-400); RED BLOOD CELL COUNT 4.19 mill/uL (4.7-6.1); RED CELL DISTRIBUTION WIDTH 14.4 % (11.6-14.6)
[2022-08-28 10:11] LABS: CHLORIDE 101 mEq/L (98-107)
[2022-08-28 10:29] LABS: HDL CHOLESTEROL 66 mg/dL (40-59); LDL CHOLESTEROL 32 mg/dL (5-100); PHOSPHORUS 2.3 mg/dL (2.5-4.9)
[2022-08-28] MEDS: LOSARTAN POTASSIUM 25 MG TABLET PO SCH (10:30)
[2022-08-28] MEDS: TAMSULOSIN HCL 0.4MG SR CAPSULE PO SCH (10:30)
[2022-08-28] MEDS: ENOXAPARIN 40MG/0.4ML SYR SUBCUT SCH (10:30)
[2022-08-28 11:45] LABS: PLATELET ESTIMATE NORMAL
[2022-08-28] MEDS: SODIUM CHLORIDE 0.45% 1,000 ML IV SCH (14:40)
[2022-08-28] MEDS: PREDNISONE 20MG TABLET PO SCH (15:31)
[2022-08-28] MEDS: LEVOFLOXACIN 500MG PREMIX 100 ML IV SCH (15:32)
[2022-08-28] MEDS: FAMOTIDINE 20MG TABLET PO SCH (22:27)
[2022-08-29] VITALS: BP 110/70
[2022-08-29 04:00] VITALS: BP 116/78
[2022-08-29 06:42] LABS: HEMATOCRIT. 39.2 % (42.0-52.0); HEMOGLOBIN. 12.8 g/dL (14.0-18.0); MEAN CORPUSCULAR HEMOGLOBIN 32.3 pg (28.0-32.0); MEAN CORPUSCULAR VOLUME 98.5 fL (80.0-94.0); MEAN PLATELET VOLUME 10.3 fl (7.4-10.4); PLATELET 163 x1000/uL (130-400); RED BLOOD CELL COUNT 3.97 mill/uL (4.7-6.1); RED CELL DISTRIBUTION WIDTH 14.8 % (11.6-14.6)
[2022-08-29] MEDS: SODIUM CHLORIDE 0.45% 1,000 ML IV SCH (06:54)
[2022-08-29 07:53] VITALS: BP 126/79
[2022-08-29] MEDS: PREDNISONE 20MG TABLET PO SCH (08:52)
[2022-08-29] MEDS: LOSARTAN POTASSIUM 25 MG TABLET PO SCH (08:52)
[2022-08-29] MEDS: ENOXAPARIN 40MG/0.4ML SYR SUBCUT SCH (08:53)
[2022-08-29] MEDS: FAMOTIDINE 20MG TABLET PO SCH (08:53)
[2022-08-29] MEDS: TAMSULOSIN HCL 0.4MG SR CAPSULE PO SCH (08:53)
[2022-08-29] MEDS: IPRATROPIUM/ALBUTEROL 0.5-3(2.5)MG/3ML NEB NEB PRN (09:16)
[2022-08-29 10:30] LABS: CHLORIDE 98 mEq/L (98-107)
[2022-08-29 10:39] LABS: T4 FREE 1.06 ng/dL (0.76-1.46)
[2022-08-29 11:43] VITALS: BP 111/71
[2022-08-29] MEDS ORDERED: IPRATROPIUM/ALBUTEROL 0.5-3(2.5)MG/3ML NEB HHN SCH (12:00)
[2022-08-29] MEDS: LEVOFLOXACIN 500MG PREMIX 100 ML IV SCH (13:29)
[2022-08-29 14:18] VITALS: BP 111/71
[2022-08-29 16:01] VITALS: BP 145/87
[2022-08-29 21:21] LABS: PLATELET ESTIMATE NORMAL
[2022-09-01 08:00] VITALS: BP 145/107
[2022-09-01 12:00] VITALS: BP 149/69
== END 2022-08-29 15:39 | disposition home or self-care (01) | DRG 720 ==
LOC: ER 13:58 → 6EST 18:34 → ENRESERV 23:23
PROVIDERS: ADMIT Internal Medicine; ATTEND Internal Medicine
DX: A41.9 Sepsis, unspecified organism (principal); J69.0 Pneumonitis due to inhalation of food and vomit; E46 Unspecified protein-calorie malnutrition; K56.1 Intussusception; E87.20 Acidosis, unspecified; I48.91 Unspecified atrial fibrillation; E87.1 Hypo-osmolality and hyponatremia; N39.0 Urinary tract infection, site not specified; J44.9 Chronic obstructive pulmonary disease, unspecified; Z20.822 Contact with and (suspected) exposure to COVID-19; M87.9 Osteonecrosis, unspecified; Z68.20 Body mass index [BMI] 20.0-20.9, adult; I10 Essential (primary) hypertension; N40.0 Benign prostatic hyperplasia without lower urinary tract symptoms; Z79.899 Other long term (current) drug therapy; Z79.51 Long term (current) use of inhaled steroids; Z86.73 Personal history of transient ischemic attack (TIA), and cerebral infarction without residual deficits
CPT/HCPCS: 36415; 71045; 74176; 80048; 80053; 80061; 81003; 83605; 83735; 84100; 84145; 84153; 84439; 84443; 85025; 87426; 97162; 97166; 99285; J0696; J1650; J1956; J2405; J7512; G0103

== ENCOUNTER 2023-07-01 18:02 | Emergency (ER) | payer MEDICAID ==
[~2023-07-01] VITALS: Ht 167.6 cm; Wt 56.0 kg
[~2023-07-01 18:02] MED LIST changes: +AMOX-494 MT; +MONT-46 PO; -MONT10TA21 PO; +NITR-87 MT; +P20 MT
[2023-07-01 18:07] VITALS: O2SAT 99
[2023-07-01 19:54] LABS: BASOPHILS % 0.4 % (0.0-2.0); EOSINOPHILS % 2.5 % (0.0-5.0); HEMATOCRIT. 43.1 % (42.0-52.0); HEMOGLOBIN. 13.8 g/dL (14.0-18.0); LYMPHOCYTES % 14.3 % (20.0-50.0); MEAN CORPUSCULAR HEMOGLOBIN 30.1 pg (28.0-32.0); MEAN CORPUSCULAR HGB CONC 32.1 g/dL (31.0-37.0); MEAN CORPUSCULAR VOLUME 93.9 fL (80.0-94.0); MEAN PLATELET VOLUME 9.6 fl (7.4-10.4); MONOCYTES % 9.1 % (2.0-8.0); NEUTROPHILS % 73.7 % (40.0-76.0); PLATELET 194 x1000/uL (130-400); RED BLOOD CELL COUNT 4.59 mill/uL (4.7-6.1); RED CELL DISTRIBUTION WIDTH 14.4 % (11.6-14.6); WHITE BLOOD COUNT 10.8 x1000/uL (4.5-11.0)
[2023-07-01 20:10] LABS: CHLORIDE 107 mEq/L (98-107); INDEX HEMOLYSI 1 (1-3); INDEX ICTERIC 1 (1-4); INDEX LIPEMIC 1 (1-3); POTASSIUM 3.7 mEq/L (3.5-5.1); SODIUM 142 mEq/L (136-145)
[2023-07-01 20:16] LABS: ALANINE AMINOTRANSFERASE 22 IU/L (13-61); ALBUMIN 3.8 g/dL (3.4-5.0); ASPARTATE AMINOTRANSFERASE 20 IU/L (15-37); BILIRUBIN TOTAL 0.3 mg/dL (0.1-1.0); CALCIUM 9.4 mg/dL (8.5-10.1); CARBON DIOXIDE 31 mEq/L (21-32); CREATININE 0.9 mg/dL (0.6-1.3); GLUCOSE 101 mg/dL (70-105); PROTEIN TOTAL 7.7 g/dL (6.0-8.3); UREA NITROGEN BLOOD 14 mg/dL (7-21)
[2023-07-01 20:27] LABS: CLARITY URINE TURBID (CLEAR); COLOR URINE YELLOW (YELLOW); GLUCOSE URINE NEGATIVE (NEGATIVE); KETONES URINE TRACE (NEGATIVE); LEUKOCYTE ESTERASE URINE 1+ (NEGATIVE); NITRITE URINE NEGATIVE (NEGATIVE); OCCULT BLOOD URINE NEGATIVE (NEGATIVE); PH URINE >=9.0 (4.5-8.0); PROTEIN URINE 2+ (NEGATIVE); SPECIFIC GRAVITY URINE 1.014 (1.005-1.030)
[2023-07-01 21:16] LABS: BACTERIA URINE 4+
[2023-07-01 21:17] LABS: RBC URINE 0-2 /hpf (0-2); SQUAMOUS EPITHELIAL CELL URINE FEW /lpf (RARE/1+)
[2023-07-01] MEDS ORDERED: TAMS-11 MT (21:17)
[2023-07-01] MEDS ORDERED: CIPR250T4 MT (21:17)
[2023-07-01 22:47] VITALS: BP 165/95; PULSE 85; RESP 18; TEMP 98.2
== END 2023-07-01 22:52 | disposition still patient (30) ==
LOC: ER 18:05
DX: R33.9 Retention of urine, unspecified (principal); J44.9 Chronic obstructive pulmonary disease, unspecified; I10 Essential (primary) hypertension; Z79.899 Other long term (current) drug therapy
CPT/HCPCS: 36415; 51702; 80053; 81003; 85025; 99284; A4315

== ENCOUNTER 2025-06-27 11:00 | Inpatient (IN) | payer MEDICAID ==
[~2025-06-27] VITALS: Ht 177.8 cm; Wt 48.5 kg
[~2025-06-27 11:00] MED LIST changes: -AMOX-494 MT; +CLAR10 PO; -FLUT1DIS INH; -NITR-87 MT; +OMEP20TA23 MT; -OMEP20TA23 PO; -P20 MT; -RISP05 PO; -TAMS-11 PO; +TAMS-54 MT; -TDUR2 PO; -TRAZ-251 PO
[2025-06-27] MEDS: ASPIRIN 325MG TABLET PO ONE (11:25)
[2025-06-27] MEDS: HEPARIN 5000 UNITS/ML VIAL IV ONE (11:25)
[2025-06-27] MEDS ORDERED: IODIXANOL 320 MG/ML 150ML BOTTLE IV ONE (11:27)
[2025-06-27] MEDS ORDERED: HEPARIN 1000 UNITS/ML 10ML ONE (11:27)
[2025-06-27] MEDS ORDERED: LIDOCAINE HCL 1% 20ML VIAL ONE (11:27)
[2025-06-27] MEDS: ONDANSETRON HCL 4MG/2ML INJ IV ONE (11:30)
[2025-06-27] MEDS ORDERED: ONDANSETRON HCL 4MG/2ML INJ ONE (11:40)
[2025-06-27] MEDS ORDERED: MIDAZOLAM HCL 2 MG/2 ML VIAL ONE (11:43)
[2025-06-27] MEDS ORDERED: FENTANYL CITRATE/PF 50MCG/ML 2ML VIAL ONE (11:43)
[2025-06-27 11:51] LABS: BASOPHILS % 0.2 % (0.0-2.0); EOSINOPHILS % 0.3 % (0.0-5.0); HEMATOCRIT. 57.7 % (42.0-52.0); HEMOGLOBIN. 18.3 g/dL (14.0-18.0); LYMPHOCYTES % 7.5 % (20.0-50.0); MEAN PLATELET VOLUME 10.2 fl (7.4-10.4); MONOCYTES % 5.2 % (2.0-8.0); NEUTROPHILS % 86.8 % (40.0-76.0); PLATELET 208 x1000/uL (130-400); RED BLOOD CELL COUNT 5.79 mill/uL (4.7-6.1); RED CELL DISTRIBUTION WIDTH 16.2 % (11.6-14.6)
[2025-06-27 11:54] LABS: INR 1.2
[2025-06-27] MEDS ORDERED: HYDRALAZINE 20MG/ML VIAL ONE (11:56)
[2025-06-27] MEDS ORDERED: AMLODIPINE 10MG TABLET PO ONE (12:00)
[2025-06-27] MEDS ORDERED: HYDRALAZINE 20MG/ML VIAL IV PRN (12:00)
[2025-06-27] MEDS ORDERED: ACETAMINOPHEN 650MG/20.3ML UDC GT PRN (12:00)
[2025-06-27] MEDS ORDERED: DEXTROSE 50% WATER 50ML SYRINGE IV PRN (12:00)
[2025-06-27] MEDS ORDERED: ONDANSETRON HCL 4MG/2ML INJ IV PRN (12:00)
[2025-06-27] MEDS ORDERED: IPRATROPIUM/ALBUTEROL 0.5-3(2.5)MG/3ML NEB HHN PRN (12:00)
[2025-06-27 12:06] LABS: CREATININE 1.1 mg/dL (0.6-1.3); UREA NITROGEN BLOOD 5 mg/dL (9-23)
[2025-06-27 12:08] LABS: ASPARTATE AMINOTRANSFERASE 33 IU/L (<34); BILIRUBIN DIRECT 0.3 mg/dL (<=3.0); BILIRUBIN TOTAL 0.9 mg/dL (0.1-1.0)
[2025-06-27 12:09] LABS: PROTEIN TOTAL 7.9 g/dL (6.0-8.3)
[2025-06-27 12:17] LABS: TROPONIN I HIGH SENSITIVITY 183 ng/L (3.0-53)
[2025-06-27] MEDS: BLOOD SUGAR DIAGNOSTIC STRIP TEST SCH (12:45)
[2025-06-27 12:57] VITALS: BP 140/77; PULSE 84; RESP 22; TEMP 36.8; O2SAT 100
[2025-06-27 13:11] VITALS: BP 140/77; PULSE 84; RESP 22; TEMP 36.8628
[2025-06-27 14:21] LABS: INR 1.4
[2025-06-27 14:57] LABS: HEPATITIS C AB NON REACTIVE (Neg) (Negative)
[2025-06-27 15:17] LABS: TROPONIN I HIGH SENSITIVITY 1095 ng/L (3.0-53)
[2025-06-27] MEDS: ACETAMINOPHEN 650MG/20.3ML UDC GT PRN (15:59)
[2025-06-27] MEDS: PANTOPRAZOLE SODIUM 40 MG/VIAL IV SCH (15:59)
[2025-06-27] MEDS: AMLODIPINE 10MG TABLET PO SCH (15:59)
[2025-06-27 16:09] VITALS: BP 168/95; PULSE 77; RESP 22; TEMP 36.7; O2SAT 100
[2025-06-27] MEDS: INSULIN LISPRO 100 UNITS/ML SUBCUT SCH (16:59)
[2025-06-27] MEDS: LOSARTAN 50 MG TABLET PO SCH (17:05)
[2025-06-27] MEDS: MONTELUKAST SODIUM 10MG TABLET PO SCH (17:05)
[2025-06-27 19:47] LABS: CREATINE KINASE MB FRACTION 29.1 ng/mL (0.5-3.6)
[2025-06-27 20:00] VITALS: BP 146/91; PULSE 78; RESP 24; TEMP 36.6; O2SAT 97
[2025-06-27 20:11] LABS: TROPONIN I HIGH SENSITIVITY 6412 ng/L (3.0-53)
[2025-06-27] MEDS: BUDESONIDE 0.5MG/2ML NEB HHN SCH (20:13)
[2025-06-27 20:14] VITALS: PULSE 77; RESP 22; O2SAT 99
[2025-06-27] MEDS: IPRATROPIUM/ALBUTEROL 0.5-3(2.5)MG/3ML NEB HHN SCH (20:14)
[2025-06-27] MEDS: ATORVASTATIN CALCIUM 40MG TABLET PO SCH (20:50)
[2025-06-27] MEDS ORDERED: MORPHINE SULFATE 2 MG/ML INJ (NOT FOR IM USE) IV PRN (22:30)
[2025-06-27] MEDS: MORPHINE SULFATE 4 MG/ML INJ (FOR IV/IM USE) IV PRN (23:02)
[2025-06-28] VITALS (8 sets, daily range): BP systolic 99–157; BP diastolic 70–108; PULSE 77–104; RESP 14–21; TEMP 36.7–37.1; O2SAT 96–99
[2025-06-28 00:14] LABS: CREATININE 1.0 mg/dL (0.6-1.3); PHOSPHORUS 3.2 mg/dL (2.5-4.9); UREA NITROGEN BLOOD 9 mg/dL (9-23)
[2025-06-28 00:17] LABS: CREATINE KINASE MB FRACTION 74.1 ng/mL (0.5-3.6); T4 FREE 0.82 ng/dL (0.89-1.76)
[2025-06-28 00:20] LABS: TROPONIN I HIGH SENSITIVITY 16148 ng/L (3.0-53)
[2025-06-28] MEDS: MAGNESIUM 2 G PREMIX 50 ML IV NR (01:18)
[2025-06-28 03:16] LABS: *AMPHETAMINES SCREEN URINE NEGATIVE (NEGATIVE)
[2025-06-28 03:17] LABS: *BARBITURATES SCREEN URINE NEGATIVE (NEGATIVE); *BENZODIAZEPINES SCREEN URINE PRESUMPTIVE POSITIVE (NEGATIVE); *COCAINE SCREEN URINE NEGATIVE (NEGATIVE); CANNABINOID URINE SCREEN PRESUMPTIVE POSITIVE (NEGATIVE); ECSTASY MDMA SCREEN URINE NEGATIVE (NEGATIVE); METHADONE URINE SCREEN NEGATIVE (NEGATIVE); OPIATES URINE SCREEN NEGATIVE (NEGATIVE); PHENCYCLIDINE URINE SCREEN NEGATIVE (NEGATIVE)
[2025-06-28 03:24] LABS: CLARITY URINE CLEAR (CLEAR); COLOR URINE YELLOW (YELLOW); GLUCOSE URINE NEGATIVE (NEGATIVE); KETONES URINE NEGATIVE (NEGATIVE); PH URINE 5.5 (4.5-8.0); PROTEIN URINE NEGATIVE (NEGATIVE); SPECIFIC GRAVITY URINE 1.008 (1.005-1.030)
[2025-06-28 03:25] LABS: LEUKOCYTE ESTERASE URINE 2+ (NEGATIVE); NITRITE URINE POSITIVE (NEGATIVE); OCCULT BLOOD URINE 1+ (NEGATIVE); UROBILINOGEN URINE 0.2 E.U./dL (0.2-1.0)
[2025-06-28 03:43] LABS: BACTERIA URINE 1+; RBC URINE 0-2 /hpf (0-2); SQUAMOUS EPITHELIAL CELL URINE FEW /lpf (RARE/1+)
[2025-06-28] MEDS: CEFTRIAXONE 1GM/50ML 50 ML IV SCH (06:01)
[2025-06-28 06:42] LABS: BASOPHILS % 0.2 % (0.0-2.0); EOSINOPHILS % 0.1 % (0.0-5.0); HEMATOCRIT. 54.9 % (42.0-52.0); HEMOGLOBIN. 17.5 g/dL (14.0-18.0); LYMPHOCYTES % 8.5 % (20.0-50.0); MEAN PLATELET VOLUME 10.5 fl (7.4-10.4); MONOCYTES % 10.6 % (2.0-8.0); NEUTROPHILS % 80.6 % (40.0-76.0); PLATELET 190 x1000/uL (130-400); RED BLOOD CELL COUNT 5.58 mill/uL (4.7-6.1); RED CELL DISTRIBUTION WIDTH 16.3 % (11.6-14.6)
[2025-06-28 07:14] LABS: CREATININE 0.9 mg/dL (0.6-1.3); T4 FREE 0.86 ng/dL (0.89-1.76)
[2025-06-28 07:15] LABS: TRIGLYCERIDE 96 mg/dL (0-150); UREA NITROGEN BLOOD < 5 mg/dL (9-23)
[2025-06-28 07:16] LABS: LDL CHOLESTEROL 86 mg/dL (5-100)
[2025-06-28 07:17] LABS: PHOSPHORUS 3.1 mg/dL (2.5-4.9)
[2025-06-28] MEDS: TAMSULOSIN HCL 0.4MG SR CAPSULE PO SCH ×2 (08:58→08:59)
[2025-06-28] MEDS: ASPIRIN 81MG TABLET PO SCH ×2 (08:58→08:59)
[2025-06-28] MEDS: ENOXAPARIN 40MG/0.4ML SYR SUBCUT SCH (08:59)
[2025-06-28] MEDS: PREDNISONE 20MG TABLET PO SCH (16:43)
[2025-06-29] VITALS (10 sets, daily range): BP systolic 89–105; BP diastolic 61–75; PULSE 80–97; RESP 14–20; TEMP 36.7–37.1; O2SAT 95–99
[2025-06-29 03:42] LABS: TROPONIN I HIGH SENSITIVITY 7556 ng/L (3.0-53)
[2025-06-29 07:14] LABS: PLATELET 178 x1000/uL (130-400); RED BLOOD CELL COUNT 5.31 mill/uL (4.7-6.1); RED CELL DISTRIBUTION WIDTH 16.5 % (11.6-14.6)
[2025-06-29 07:24] LABS: UREA NITROGEN BLOOD 9 mg/dL (9-23)
[2025-06-29 07:27] LABS: TROPONIN I HIGH SENSITIVITY 6118 ng/L (3.0-53)
[2025-06-29] MEDS: DOCUSATE SODIUM 250MG CAPSULE PO PRN (08:39)
[2025-06-29] MEDS ORDERED: DEXTROSE 50% WATER 50ML SYRINGE IV PRN (09:15)
[2025-06-29 09:39] LABS: CREATININE 1.3 mg/dL (0.6-1.3)
[2025-06-29] MEDS: BLOOD SUGAR DIAGNOSTIC STRIP TEST SCH (11:50)
[2025-06-29] MEDS: PREDNISONE 20MG TABLET PO SCH (11:56)
[2025-06-29] MEDS: INSULIN LISPRO 100 UNITS/ML SUBCUT SCH (12:20)
[2025-06-29 13:18] LABS: TROPONIN I HIGH SENSITIVITY 5369 ng/L (3.0-53)
[2025-06-29 19:17] LABS: CLARITY URINE CLEAR (CLEAR); COLOR URINE DARK YELLOW (YELLOW); GLUCOSE URINE NEGATIVE (NEGATIVE); KETONES URINE TRACE (NEGATIVE); LEUKOCYTE ESTERASE URINE 2+ (NEGATIVE); NITRITE URINE NEGATIVE (NEGATIVE); OCCULT BLOOD URINE 1+ (NEGATIVE); PH URINE 5.5 (4.5-8.0); PROTEIN URINE TRACE (NEGATIVE); SPECIFIC GRAVITY URINE 1.024 (1.005-1.030); UROBILINOGEN URINE 0.2 E.U./dL (0.2-1.0)
[2025-06-29 19:29] LABS: BACTERIA URINE TRACE; SQUAMOUS EPITHELIAL CELL URINE RARE /lpf (RARE/1+)
[2025-06-29] MEDS: SODIUM CHLORIDE 0.9% 1,000 ML IV SCH (20:13)
[2025-06-29 22:51] LABS: TROPONIN I HIGH SENSITIVITY 3887 ng/L (3.0-53)
[2025-06-30] VITALS (9 sets, daily range): BP systolic 96–137; BP diastolic 54–86; PULSE 73–88; RESP 17–20; TEMP 36.7–37; O2SAT 96–100
[2025-06-30 00:38] LABS: TROPONIN I HIGH SENSITIVITY 3779 ng/L (3.0-53)
[2025-06-30 07:18] LABS: CREATININE 0.9 mg/dL (0.6-1.3)
[2025-06-30 07:19] LABS: UREA NITROGEN BLOOD 9 mg/dL (9-23)
[2025-06-30 07:24] LABS: PLATELET 168 x1000/uL (130-400); RED BLOOD CELL COUNT 4.64 mill/uL (4.7-6.1); RED CELL DISTRIBUTION WIDTH 15.5 % (11.6-14.6)
[2025-06-30 07:36] LABS: TROPONIN I HIGH SENSITIVITY 3729 ng/L (3.0-53)
[2025-06-30] MEDS ORDERED: SULF1TAB48 MT (14:39)
[2025-06-30] MEDS ORDERED: LOSA25TA26 PO (14:39)
[2025-06-30] MEDS ORDERED: ASPI-1160 PO (14:39)
[2025-06-30] MEDS ORDERED: AMLO10TA80 PO (14:39)
[2025-06-30] MEDS ORDERED: SIMV10TA97 PO (14:43)
[2025-06-30] MEDS ORDERED: TAMS-54 PO (14:43)
[2025-06-30] MEDS ORDERED: MONT-46 PO (14:43)
== END 2025-06-30 19:07 | disposition home or self-care (01) | DRG 190 ==
LOC: ER 11:00 → 3WST 11:39 → EDBEDREQ 12:07
PROVIDERS: ADMIT Internal Medicine; ATTEND Internal Medicine
PROC: 4A023N7 Measurement of Cardiac Sampling and Pressure, Left Heart, Percutaneous Approach (ICD-10-PCS; principal; 2025-06-27)
PROC: B211YZZ Fluoroscopy of Multiple Coronary Arteries using Other Contrast (ICD-10-PCS; 2025-06-27)
PROC: B215YZZ Fluoroscopy of Left Heart using Other Contrast (ICD-10-PCS; 2025-06-27)
DX: I21.19 ST elevation (STEMI) myocardial infarction involving other coronary artery of inferior wall (principal); J18.9 Pneumonia, unspecified organism; J44.0 Chronic obstructive pulmonary disease with (acute) lower respiratory infection; I16.1 Hypertensive emergency; J44.1 Chronic obstructive pulmonary disease with (acute) exacerbation; I12.9 Hypertensive chronic kidney disease with stage 1 through stage 4 chronic kidney disease, or unspecified chronic kidney disease; N18.9 Chronic kidney disease, unspecified; K59.00 Constipation, unspecified; N40.0 Benign prostatic hyperplasia without lower urinary tract symptoms; E11.22 Type 2 diabetes mellitus with diabetic chronic kidney disease; N31.9 Neuromuscular dysfunction of bladder, unspecified; N39.0 Urinary tract infection, site not specified; M54.2 Cervicalgia; Z79.899 Other long term (current) drug therapy; Z87.891 Personal history of nicotine dependence; Z86.73 Personal history of transient ischemic attack (TIA), and cerebral infarction without residual deficits; Z99.81 Dependence on supplemental oxygen
CPT/HCPCS: 36415; 71045; 80048; 80061; 80076; 80305; 80320; 81003; 82550; 82553; 82962; 83036; 83605; 83735; 83880; 84100; 84134; 84145; 84439; 84443; 84484; 85025; 85027; 85347; 86705; 86850; 86900; 87077; 87186; 87340; 93005; 93458; 94070; 94640; 94664; 97162; 97166; 97535; 98960; 99291; C1769; C1887; C1893; J0360; J0696; J1644; J1650; J1815; J2003; J2250; J2270; J2405; J2470; J3010; J3475; J3490; J7030; J7512; J7626; Q9967; G0480